=== PATIENT | female | born 2000 | race Hispanic/Latino ===

== ENCOUNTER 2019-01-09 21:34 | Emergency (ER) | payer OTHER, SELFPAY ==
[2019-01-09 21:48] VITALS: BP 139/90; PULSE 93; RESP 20; TEMP 36.1; O2SAT 100; BMI 27.4
--- NOTE | 2019-01-09 21:58 | DI.CT.S_ITS ---
PROCEDURE: CT HEAD/BRAIN WO CON INDICATIONS: worst headache TECHNIQUE: Noncontrast 4.5 mm thick angled axial sections acquired from the foramen magnum to the vertex, with coronal and sagittal reformats. For radiation dose reduction, the following was used: automated exposure control, adjustment of mA and/or kV according to patient size. COMPARISON: None. FINDINGS: Image quality: Excellent. CSF spaces: Basal cisterns are patent. No extra-axial fluid collections. Ventricles are normal in size and shape. Brain: No midline shift. No intracranial masses or hemorrhage. Shetty-white matter interface is normal. Skull and face: Calvarium and visualized facial bones are intact, without suspicious lesions. Sinuses: Visualized sinuses and mastoids are clear. IMPRESSION: No acute intracranial disease process. Dictated by: Paty Haro MD, PhD on 01/10/2019 at 7:14 Approved by: Paty Haro MD, PhD on 01/10/2019 at 7:15
[2019-01-09 22:00] VITALS: BP 125/67; PULSE 74; RESP 16; O2SAT 100
[2019-01-09] MEDS: DEXAMETHASONE 10 MG/ML VIAL IV (22:03)
[2019-01-09] MEDS: METOCLOPRAMIDE 10 MG/2 ML INJ IV (22:04)
[2019-01-09] MEDS: SODIUM CHLORIDE 0.9% 1,000 ML 1000 ML IV (22:04)
[2019-01-09] MEDS: diphenhydrAMINE 50 MG/ML VIAL 25 MG IV (22:04)
--- NOTE | 2019-01-09 22:12 | PC.NURSE ---
PT states awoke with headache that progressed to migraine with N/V and 3 episodes of vomitting. HX of 6-8 migraines per month and takes Excedrine which normally works to resolve it. Reports strobe light flashes in the eyes intermittently which makes her pain much worse. She has never experienced this in the past and it happens with closed or open eyes. Took 8 Excedrine today. Has not seen a doctor headaches. States LMP was 4 or 5 days ago and denies being . [ End ]
[2019-01-09 23:00] VITALS: BP 120/75; PULSE 78; RESP 16; O2SAT 100
--- NOTE | 2019-01-10 02:52 | ED_ITS ---
HPI - Headache General Chief Complaint: Headache Stated Complaint: Extreme Migraine Time Seen by Provider: 01/09/19 21:40 Source: patient and family Mode of arrival: ambulatory Limitations: no limitations History of Present Illness HPI Narrative: 18-year-old female nonsmoker with history of migraines presents with another episode of temporal migraine patient denies any injury nor fever or chills. Her headache has been gradual in onset and very similar to prior episodes. She has had nausea but denies any vomiting. Her pain is worse with bright lights and loud noises. MD Complaint: migraine Onset (ago): hour(s) Onset description: gradual Location: left and temporal Severity: moderate Quality: aching and throbbing Relieving factors: dark room Exacerbating factors: light and noise Context: occurred at rest Associated symptoms: nausea Treatments prior to arrival: none Related Data Allergies Allergy/AdvReac Type Severity Reaction Status Date / Time No Known Drug Allergies Allergy Verified 01/09/19 21:52 Review of Systems Constitutional Denies chills, Denies fever(s), Reports headache(s), Denies lethargy and Denies weakness Eyes Denies change in vision, Denies eye discharge, Denies irritation and Denies loss of vision ENT Ears, Nose, Mouth, and Throat: Denies change in voice, Reports headache(s), Denies neck pain and Denies sore throat Cardiovascular Denies chest pain, Denies irregular heart rhythm, Denies lightheadedness, Denies palpitations, Denies dyspnea, Denies dyspnea on exertion and Denies orthopnea Respiratory Denies cough, Denies dyspnea, Denies dyspnea on exertion and Denies wheezing Gastrointestinal Gastrointestinal: Denies abdominal pain, Denies change in bowel habits, Denies diarrhea, Denies nausea and Denies vomiting Genitourinary Denies hematuria, Denies flank pain, Denies urinary incontinence and Denies urinary urgency Musculoskeletal Denies neck pain Integumentary/Breasts Denies pruritus, Denies erythema, Denies rash and Denies wounds Neurologic Denies confusion, Reports headache(s), Denies loss of vision and Denies weakness Psychiatric Denies anxiety, Denies confusion, Denies depression, Denies homicidal ideation and Denies suicidal ideation Endocrine Denies palpitations Hematologic/Lymphatic Denies easy bruising Allergic/Immunologic Denies wheezing PFSH Social History Smoking Status: Never smoker Social History Smoking Status: Never smoker Exam Narrative Exam Narrative: GENERAL: [18] year old patient appears stated age. Well- nourished, well-developed patient, in mild distress. HEAD: Atraumatic. Normocephalic. EYES: Pupils equal round and reactive. Extraocular motions intact. No scleral icterus. No injection or drainage. ENT: Nose without bleeding, purulent drainage. Throat without erythema, tonsillar hypertrophy or exudate. Airway patent. NECK: Trachea midline. Non tender CARDIOVASCULAR: Regular rate and rhythm without murmurs, gallops, or rubs. RESPIRATORY: Clear to auscultation. Breath sounds equal bilaterally. No wheezes, rales, or rhonchi. GASTROINTESTINAL: Abdomen soft, non-tender, nondistended. EXTREMITIES: No edema or joint tenderness. BACK: Nontender without deformity or crepitance. No flank tenderness. NEURO: AOx3. SKIN: No rash or erythema of visible areas NIH Stroke Scale 1a. LOC: Patient is alert and keenly responsive (0) 1b. LOC Questions: Patient answers both LOC questions accurately (0) 1c. LOC Commands: Patient performs both tasks correctly (0) 2. Best Gaze: Normal (0) 3. Visual: No visual loss (0) 4. Facial palsy: Normal symmetrical movements (0) 5. Motor arm: No drift (0) 6. Motor leg: No drift (0) 7. Limb ataxia: Absent (0) 8. Sensory: Normal (0) 9. Best language: No aphasia; normal (0) 10. Dysarthria: Normal (0) 11. Extinction and inattention: No abnormality (0) NIHSS: 0 Initial Vital Signs Initial Vital Signs: Vital Signs Temperature 96.9 F L 01/09/19 21:48 Pulse Rate 93 H 01/09/19 21:48 Respiratory Rate 20 01/09/19 21:48 Blood Pressure 139/90 01/09/19 21:48 Pulse Oximetry 100 01/09/19 21:48 Course Orders Ordered: ED Orders 01/09/19 21:58 CT head/brain wo con Stat Discontinued Medications Dexamethasone (Decadron) 10 mg IV NOW ONE Stop: 01/09/19 21:58 Last Admin: 01/09/19 22:03 Dose: 10 mg Diphenhydramine HCl (Benadryl) 25 mg IV NOW ONE Stop: 01/09/19 21:58 Last Admin: 01/09/19 22:04 Dose: 25 mg Sodium Chloride (Normal Saline 0.9%) 1,000 mls @ 1,000 mls/hr IV BOLUS ONE Stop: 01/09/19 22:56 Last Infusion: 01/09/19 23:04 Dose: 1,000 mls/hr Admin: 01/09/19 22:04 Dose: 1,000 mls/hr Metoclopramide HCl (Reglan) 10 mg IV NOW ONE Stop: 01/09/19 21:58 Last Admin: 01/09/19 22:04 Dose: 10 mg Vital Signs - 8 hr 01/09/19 21:48 01/09/19 22:00 01/09/19 23:00 Temperature 96.9 F L Pulse Rate 93 H 74 78 Respiratory Rate 20 16 16 Blood Pressure 139/90 Blood Pressure [Right Arm] 125/67 120/75 Pulse Oximetry 100 100 100 MDM - Headache Lab Data Point of Care Testing Test Results Negative MDM Narrative Medical decision making narrative: 18-year-old female with history of migraines presents to a medical facility for the 1st time ever to evaluate her headache. CT is ordered for this reason, no abnormal findings found. She had tremendous response to typical migraine therapies in very reassuring exam. Return precautions given, questions answered to her apparent satisfaction Discharge Plan Departure Patient Disposition: Home Clinical Impression: Headache Qualifiers: Headache type: unspecified Headache chronicity pattern: acute headache Intractability: not intractable Qualified Code(s): R51 - Headache Discharge Date/Time: 01/09/19 23:38 Interventions: ED Discharge Assessment Last Done: 01/09/19 23:46 Instructions: DI for Migraine Activity Restrictions/Additional Instructions: *You have been diagnosed with [acute headache, likely migraine] *What to do: *Follow up with your primary care provider in 2-3 days, call for an appointment. Let them know you were seen in the Emergency Department and that we ask that you be seen in follow up. Consider following up with our [facility], the contact info is attached. You'll likely need a referral from your primary *Return to ER if you should have any new, worsening or concerning symptoms Referrals: Yon Woodard PA-C [[employer]] -
== END 2019-01-09 23:38 | disposition home or self-care (01) ==
PROVIDERS: Emergency Provider Emergency Medicine
DX: R51 Headache (principal)
CPT/HCPCS: 36591; 70450; 81025; 96361; 96374; 96375; 99283; 99284; J1100; J1200; J2765